=== PATIENT | male | born 1935 | race Caucasian/White ===

== ENCOUNTER → 2016-07-30 | Outpatient (REF) | payer OTHER ==
[~2016-07-30] MED LIST: ACET650T12 PO; AMLO10TA PO; ASCO25TA PO; BEN1.4DI TOP; BISA10SU27 PR; CALC25TA PO; CALC500T49 PO; DOCU10CA PO; DOXY100T PO; DRIS50002 PO; FISH5CAP PO; FISH600C PO; GLUC15002 PO; IBUP-1114 PO; IRON65TA PO; LEVO100T5 PO; LIDO1PAD EXT; MILKSUS PO; MIRA3350 PO; MULTCAP PO; MYSO50TA5 PO; NEUR100C PO; OXYC1TAB23 PO; PERCOCET PO; SAW500CA9 PO; SENN8.6C PO; ULTR50TA PO; VITA50003 PO; VITMTA PO; ZOCO80TA PO
[2016-07-30 20:09] LABS: ALBUMIN 4.1 GM/DL (3.2-5.2); ALBUMIN/GLOBULIN RATIO 1.41 (1.00-1.93); ALKALINE PHOSPHATASE 127 U/L (45-117); ALT/SGPT 22 U/L (12-78); ANION GAP 9 MEQ/L (8-16); AST/SGOT 17 U/L (15-37); BILIRUBIN,TOTAL 0.3 MG/DL (0.2-1.0); BLOOD UREA NITROGEN 17 MG/DL (7-18); CALCIUM LEVEL 8.5 MG/DL (8.8-10.2); CARBON DIOXIDE LEVEL 29 MEQ/L (21-32); CHLORIDE LEVEL 106 MEQ/L (98-107); CREATININE FOR GFR 1.11 MG/DL (0.70-1.30); FREE T4 0.86 NG/DL (0.76-1.46); GLOMERULAR FILTRATION RATE > 60.0 (>42); GLUCOSE, FASTING 93 MG/DL (83-110); POTASSIUM SERUM 4.5 MEQ/L (3.5-5.1); SODIUM LEVEL 144 MEQ/L (136-145)
== END ==
LOC: M SFHCADAM 13:54
PROVIDERS: ATTEND Family Medicine
DX: I10 Essential (primary) hypertension (principal); E03.9 Hypothyroidism, unspecified

== ENCOUNTER → 2017-03-01 | Outpatient (REF) | payer OTHER ==
[~2017-03-01] MED LIST changes: -ULTR50TA PO; +ULTR50TA8 PO; +VITA1CAP40 PO; -VITA50003 PO
[2017-03-01 20:23] LABS: ALBUMIN 4.3 GM/DL (3.2-5.2); ALKALINE PHOSPHATASE 128 U/L (45-117); ALT/SGPT 22 U/L (12-78); ANION GAP 8 MEQ/L (8-16); AST/SGOT 18 U/L (7-37); BILIRUBIN,TOTAL 0.5 MG/DL (0.2-1.0); BLOOD UREA NITROGEN 14 MG/DL (7-18); CALCIUM LEVEL 8.7 MG/DL (8.8-10.2); CARBON DIOXIDE LEVEL 29 MEQ/L (21-32); CHLORIDE LEVEL 105 MEQ/L (98-107); CREATININE FOR GFR 1.02 MG/DL (0.70-1.30); FREE T4 0.92 NG/DL (0.76-1.46); GLOMERULAR FILTRATION RATE > 60.0 (>42); GLUCOSE, FASTING 75 MG/DL (83-110); POTASSIUM SERUM 4.3 MEQ/L (3.5-5.1); SODIUM LEVEL 142 MEQ/L (136-145); TOTAL PROTEIN 7.6 GM/DL (6.4-8.2)
== END ==
LOC: M SFHCADAM 16:08
PROVIDERS: ATTEND Family Medicine
DX: R25.1 Tremor, unspecified (principal); I10 Essential (primary) hypertension

== ENCOUNTER → 2017-09-26 | Outpatient (REF) | payer OTHER ==
[2017-09-26 12:39] LABS: HEMOGLOBIN 14.5 g/dl (13.5-17.5); MEAN CORPUSCULAR HEMOGLOBIN 33.5 pg (27.0-33.0); MEAN CORPUSCULAR HGB CONC 34.5 g/dl (32.0-36.5); PLATELET COUNT, AUTOMATED 192 10^3/uL (150-450); RED BLOOD COUNT 4.33 10^6/uL (4.30-6.10); RED CELL DISTRIBUTION WIDTH 12.3 % (11.5-14.5); WHITE BLOOD COUNT 4.4 10^3/uL (4.0-10.0)
[2017-09-26 13:00] LABS: ALBUMIN 3.9 GM/DL (3.2-5.2); ALKALINE PHOSPHATASE 115 U/L (45-117); ALT/SGPT 21 U/L (12-78); ANION GAP 5 MEQ/L (8-16); AST/SGOT 18 U/L (7-37); BILIRUBIN,TOTAL 0.4 MG/DL (0.2-1.0); BLOOD UREA NITROGEN 17 MG/DL (7-18); CALCIUM LEVEL 8.7 MG/DL (8.8-10.2); CARBON DIOXIDE LEVEL 29 MEQ/L (21-32); CHLORIDE LEVEL 108 MEQ/L (98-107); CREATININE FOR GFR 1.06 MG/DL (0.70-1.30); FREE T4 0.93 NG/DL (0.76-1.46); GLOMERULAR FILTRATION RATE > 60.0 (>35); GLUCOSE, FASTING 78 MG/DL (70-100); POTASSIUM SERUM 4.4 MEQ/L (3.5-5.1); SODIUM LEVEL 142 MEQ/L (136-145); TOTAL PROTEIN 6.9 GM/DL (6.4-8.2)
[2017-09-26 13:28] LABS: VITAMIN B12 LEVEL 245 PG/ML
[2017-09-26 13:29] LABS: FOLATE 22.8 NG/ML
== END ==
LOC: M SFHCADAM 11:18
DX: R41.3 Other amnesia (principal); E03.8 Other specified hypothyroidism

== ENCOUNTER 2017-10-11 21:17 | Emergency (ER) | payer OTHER ==
[2017-10-11] MEDS: NS 1,000 ML IV (18:13)
[2017-10-11 18:32] LABS: BASO % 0.3 % (0.0-1.0); EOS % 0.1 % (0.0-3.0); HEMATOCRIT 41.7 % (42.0-52.0); HEMOGLOBIN 14.5 g/dl (13.5-17.5); IMMATURE GRANULOCYTE % 0.3 % (0-3.0); LYMPH # 0.7 10^3/uL (1.5-4.5); LYMPH % 6.9 % (24.0-44.0); MEAN CORPUSCULAR HEMOGLOBIN 33.6 pg (27.0-33.0); MEAN CORPUSCULAR HGB CONC 34.8 g/dl (32.0-36.5); MEAN CORPUSCULAR VOLUME 96.8 fl (80.0-96.0); MONO # 0.7 10^3/uL (0.0-0.8); MONO % 6.1 % (0.0-5.0); NEUTROPHILS # 9.2 10^3/uL (1.8-7.7); NEUTROPHILS % 86.3 % (36.0-66.0); PLATELET COUNT, AUTOMATED 196 10^3/uL (150-450); RED BLOOD COUNT 4.31 10^6/uL (4.30-6.10); RED CELL DISTRIBUTION WIDTH 12.4 % (11.5-14.5); WHITE BLOOD COUNT 10.6 10^3/uL (4.0-10.0)
[2017-10-11 18:44] LABS: PROTHROMBIN TIME 13.3 SECONDS (12.1-14.4)
[2017-10-11 18:46] LABS: AMMONIA 15 uMOL/L (<32)
[2017-10-11 18:53] LABS: ALBUMIN/GLOBULIN RATIO 1.29 (1.00-1.93); ALKALINE PHOSPHATASE 131 U/L (45-117); ALT/SGPT 37 U/L (12-78); ANION GAP 7 MEQ/L (8-16); AST/SGOT 25 U/L (7-37); BILIRUBIN,DIRECT 0.1 MG/DL (0.0-0.2); BILIRUBIN,TOTAL 0.5 MG/DL (0.2-1.0); BLOOD UREA NITROGEN 17 MG/DL (7-18); CALCIUM LEVEL 8.6 MG/DL (8.8-10.2); CARBON DIOXIDE LEVEL 28 MEQ/L (21-32); CHLORIDE LEVEL 108 MEQ/L (98-107); CPK CREATINE PHOSPHOKINASE 112 U/L (39-308); CREATININE FOR GFR 1.17 MG/DL (0.70-1.30); ETHYL ALCOHOL (ETHANOL) < 0.003 % (0.000-0.010); GLOMERULAR FILTRATION RATE > 60.0 (>35); GLUCOSE, FASTING 106 MG/DL (70-100); POTASSIUM SERUM 4.3 MEQ/L (3.5-5.1); SALICYLATE LEVEL < 1.7 MG/DL (5.0-30.0); SODIUM LEVEL 143 MEQ/L (136-145); TOTAL PROTEIN 7.1 GM/DL (6.4-8.2); TROPONIN I 0.02 NG/ML (< 0.10)
[2017-10-11 18:58] LABS: CK-MB VALUE MASS 1.4 NG/ML (<3.6); MB/CK RELATIVE INDEX 1.25 (< OR =4)
[2017-10-11 19:01] LABS: ACETAMINOPHEN LEVEL < 2.0 UG/ML (10.0-30.0)
[2017-10-11 19:52] LABS: KETONE, URINE AUTO RFX TRACE mg/dL (NEGATIVE); LEUKOCYTE ESTERASE UR AUTO RFX NEGATIVE (NEGATIVE); MUCUS, URINE RFX SMALL (NEGATIVE); NITRITE, URINE AUTO RFX NEGATIVE (NEGATIVE); RBC, URINE AUTO RFX 14 /HPF (0-3); SPECIFIC GRAVITY UR AUTO RFX 1.017 (1.002-1.035); SQUAM EPITHELIAL CELL UR AURFX 0 /HPF (0-6); WBC, URINE AUTO RFX 4 /HPF (0-3)
== END 2017-10-11 21:31 | disposition home or self-care (01) ==
LOC: M ED 21:17
DX: R55 Syncope and collapse (principal); R41.0 Disorientation, unspecified; I45.10 Unspecified right bundle-branch block; I10 Essential (primary) hypertension; E07.9 Disorder of thyroid, unspecified; Z82.49 Family history of ischemic heart disease and other diseases of the circulatory system; Z79.899 Other long term (current) drug therapy
CPT/HCPCS: 71101

== ENCOUNTER 2017-10-13 19:33 | Emergency (ER) | payer OTHER | END 2017-10-13 22:09 | disposition home or self-care (01) | LOC: M ED 19:33 | DX: T14.8XXA Other injury of unspecified body region, initial encounter (principal); W01.0XXA Fall on same level from slipping, tripping and stumbling without subsequent striking against object, initial encounter; Y92.096 Garden or yard of other non-institutional residence as the place of occurrence of the external cause; I10 Essential (primary) hypertension; F03.90 Unspecified dementia, unspecified severity, without behavioral disturbance, psychotic disturbance, mood disturbance, and anxiety; E03.9 Hypothyroidism, unspecified; Z79.899 Other long term (current) drug therapy | CPT/HCPCS: 71101 ==

== ENCOUNTER 2017-11-07 07:10 | Day surgery (SDC) | payer OTHER ==
[2017-11-07] MEDS: PROPARACAINE 0.5% OPHTH SOL 15ML OS (07:30)
[2017-11-07] MEDS: PHENYLEPHRINE 2.5% OPHTH SOL 2ML OS (07:30)
[2017-11-07] MEDS ORDERED: MIDAZOLAM INJ 2 MG/2 ML VIAL (J2250) As Ordered (07:32)
[2017-11-07] MEDS ORDERED: fentaNYL 100 MCG/2 ML INJECTION (J3010) As Ordered (07:32)
[2017-11-07] MEDS: TROPICAMIDE 1% OPHTH SOLN 2ML OS (07:35)
[2017-11-07] MEDS: OFLOXACIN 0.3 % (OCUFLOX) OPTH SOL 5ML OS (07:35)
[2017-11-07] MEDS: LIDOCAINE 0.75%/EPINEPHRINE 0.025% IN BSS 1ML SYR INTRACAMERAL (OR ONLY) As Ordered (09:41)
[2017-11-07] MEDS: BALANCED SALT IRRIGATION SOLUTION 500ML BAG (FOR OR EYE MACHINE) As Ordered (09:41)
[2017-11-07] MEDS: POVIDONE-IODINE 5% OPHTH PREP SOL 30ML As Ordered (09:41)
[2017-11-07] MEDS: DUOVISC (0.50ML VISCOAT/0.55ML PROVISC) OPHTH KIT As Ordered (09:41)
[2017-11-07] MEDS: CEFUROXIME 1MG/0.1ML INTRACAMERAL INJ As Ordered (09:41)
[2017-11-07] MEDS ORDERED: ONDANSETRON 4MG/2ML VIAL (J2405) IV (10:30)
[2017-11-07] MEDS ORDERED: ACETAMINOPHEN TAB 650MG DOSE (2X325MG) PO (10:30)
== END 2017-11-07 10:37 | disposition home or self-care (01) ==
LOC: M SDC 07:10
DX: H25.12 Age-related nuclear cataract, left eye (principal); E78.4 Other hyperlipidemia; I10 Essential (primary) hypertension; E03.9 Hypothyroidism, unspecified; D64.9 Anemia, unspecified; R55 Syncope and collapse; Z79.899 Other long term (current) drug therapy
CPT/HCPCS: 66984

== ENCOUNTER 2017-11-14 06:07 | Day surgery (SDC) | payer OTHER ==
[2017-11-14] MEDS: OFLOXACIN 0.3 % (OCUFLOX) OPTH SOL 5ML OD (07:00)
[2017-11-14] MEDS: TROPICAMIDE 1% OPHTH SOLN 2ML OD (07:00)
[2017-11-14] MEDS: PHENYLEPHRINE 2.5% OPHTH SOL 2ML OD (07:01)
[2017-11-14] MEDS: PROPARACAINE 0.5% OPHTH SOL 15ML OD (07:01)
[2017-11-14] MEDS: POVIDONE-IODINE 5% OPHTH PREP SOL 30ML As Ordered (07:58)
[2017-11-14] MEDS: LIDOCAINE 0.75%/EPINEPHRINE 0.025% IN BSS 1ML SYR INTRACAMERAL (OR ONLY) As Ordered (08:02)
[2017-11-14] MEDS ORDERED: MIDAZOLAM INJ 2 MG/2 ML VIAL (J2250) As Ordered (08:03)
[2017-11-14] MEDS: BALANCED SALT IRRIGATION SOLUTION 500ML BAG (FOR OR EYE MACHINE) As Ordered (08:04)
[2017-11-14] MEDS ORDERED: fentaNYL 100 MCG/2 ML INJECTION (J3010) As Ordered (08:04)
[2017-11-14] MEDS: DUOVISC (0.50ML VISCOAT/0.55ML PROVISC) OPHTH KIT As Ordered (08:05)
[2017-11-14] MEDS: CEFUROXIME 1MG/0.1ML INTRACAMERAL INJ As Ordered (08:05)
[2017-11-14] MEDS ORDERED: ONDANSETRON 4MG/2ML VIAL (J2405) As Ordered (08:11)
== END 2017-11-14 09:20 | disposition home or self-care (01) ==
LOC: M SDC 06:07
DX: H25.11 Age-related nuclear cataract, right eye (principal); G25.0 Essential tremor; I10 Essential (primary) hypertension; E03.9 Hypothyroidism, unspecified; M54.5 Low back pain; D64.9 Anemia, unspecified; M12.9 Arthropathy, unspecified; Z86.010 Personal history of colon polyps; Z87.81 Personal history of (healed) traumatic fracture
CPT/HCPCS: 66984

== ENCOUNTER → 2018-11-05 | Outpatient (REF) | payer MEDICARE ==
[~2018-11-05] MED LIST changes: -ASCO25TA PO; -DRIS50002 PO; +DRIS50003 PO; +MILK120011 PO; -MILKSUS PO; +PRIM125TAB PO; +PRIM250T8 PO; -VITA1CAP40 PO; +VITA1TAB23 PO; +VITA50005 PO
[2018-11-05 19:47] LABS: BASO # 0.1 10^3/uL (0.0-0.2); BASO % 0.8 % (0.0-1.0); EOS # 0.1 10^3/uL (0.0-0.50); EOS % 1.9 % (0.0-3.0); HEMATOCRIT 38.2 % (42.0-52.0); HEMOGLOBIN 12.6 g/dl (13.5-17.5); LYMPH # 3.6 10^3/uL (1.5-4.5); LYMPH % 57.4 % (24.0-44.0); MEAN CORPUSCULAR HEMOGLOBIN 32.8 pg (27.0-33.0); MEAN CORPUSCULAR VOLUME 99.5 fl (80.0-96.0); MONO # 0.5 10^3/uL (0.0-0.8); MONO % 7.7 % (0.0-5.0); PLATELET COUNT, AUTOMATED 162 10^3/uL (150-450); RED BLOOD COUNT 3.84 10^6/uL (4.30-6.10); WHITE BLOOD COUNT 6.2 10^3/uL (4.0-10.0)
[2018-11-05 19:56] LABS: ALBUMIN 3.8 GM/DL (3.2-5.2); BILIRUBIN,TOTAL 0.6 MG/DL (0.2-1.0); CALCIUM LEVEL 8.8 MG/DL (8.8-10.2); CREATININE FOR GFR 1.47 MG/DL (0.70-1.30); GLOMERULAR FILTRATION RATE 48.9 (>35); POTASSIUM SERUM 4.6 MEQ/L (3.5-5.1); THYROID STIMULATING HORMONE 2.16 uIU/ML (0.358-3.740); TOTAL PROTEIN 7.2 GM/DL (6.4-8.2)
== END ==
LOC: M SFHCADAM 14:39
PROVIDERS: ATTEND Family Medicine
DX: Z00.00 Encounter for general adult medical examination without abnormal findings (principal); I10 Essential (primary) hypertension; Z23 Encounter for immunization
CPT/HCPCS: 80053; 84443; 85025; 90471; 90715; G0463

== ENCOUNTER → 2019-04-29 | Outpatient (REF) | payer MEDICARE ==
[2019-04-29 19:27] LABS: BASO # 0.1 10^3/uL (0.0-0.2); BASO % 0.9 % (0.0-1.0); EOS # 0.1 10^3/uL (0.0-0.5); EOS % 1.4 % (0.0-3.0); HEMATOCRIT 38.5 % (42.0-52.0); HEMOGLOBIN 12.8 g/dl (13.5-17.5); LYMPH # 2.3 10^3/uL (1.5-5.0); MEAN CORPUSCULAR HEMOGLOBIN 33.1 pg (27.0-33.0); MEAN CORPUSCULAR HGB CONC 33.2 g/dl (32.0-36.5); MEAN CORPUSCULAR VOLUME 99.5 fl (80.0-96.0); MONO # 0.5 10^3/uL (0.0-0.8); MONO % 7.6 % (0.0-5.0); NEUTROPHILS # 3.5 10^3/uL (1.5-8.5); NEUTROPHILS % 53.9 % (36.0-66.0); PLATELET COUNT, AUTOMATED 187 10^3/uL (150-450); RED BLOOD COUNT 3.87 10^6/uL (4.30-6.10); WHITE BLOOD COUNT 6.4 10^3/uL (4.0-10.0)
[2019-04-29 19:43] LABS: ALBUMIN 3.7 GM/DL (3.2-5.2); BILIRUBIN,TOTAL 0.3 MG/DL (0.2-1.0); CALCIUM LEVEL 8.2 MG/DL (8.8-10.2); CREATININE FOR GFR 1.53 MG/DL (0.70-1.30); GLOMERULAR FILTRATION RATE 46.7 (>35); POTASSIUM SERUM 4.7 MEQ/L (3.5-5.1); THYROID STIMULATING HORMONE 2.85 uIU/ML (0.358-3.740); TOTAL PROTEIN 6.9 GM/DL (6.4-8.2)
== END ==
LOC: M SFHCADAM 16:33
PROVIDERS: ATTEND Family Medicine
DX: I10 Essential (primary) hypertension (principal); G25.0 Essential tremor; E03.9 Hypothyroidism, unspecified
CPT/HCPCS: 80053; 84443; 85025; G0463

== ENCOUNTER → 2019-11-16 | Outpatient (REF) | payer MEDICARE ==
[~2019-11-16] MED LIST changes: +ASCO250T20 PO; -VITA1TAB23 PO
[2019-12-13 05:12] LABS: BASO % 0.6 % (0.0-1.0); EOS # 0.1 10^3/uL (0.0-0.5); EOS % 1.6 % (0.0-3.0); HEMATOCRIT 39.9 % (42.0-52.0); HEMOGLOBIN 13.1 g/dl (13.5-17.5); LYMPH # 1.6 10^3/uL (1.5-5.0); LYMPH % 32.2 % (24.0-44.0); MEAN CORPUSCULAR HEMOGLOBIN 32.8 pg (27.0-33.0); MEAN CORPUSCULAR HGB CONC 32.8 g/dl (32.0-36.5); MEAN CORPUSCULAR VOLUME 99.8 fl (80.0-96.0); MONO # 0.4 10^3/uL (0.0-0.8); MONO % 7.7 % (0.0-5.0); NEUTROPHILS # 2.9 10^3/uL (1.5-8.5); NEUTROPHILS % 57.7 % (36.0-66.0); PLATELET COUNT, AUTOMATED 174 10^3/uL (150-450); WHITE BLOOD COUNT 4.9 10^3/uL (4.0-10.0)
[2019-12-26 21:01] LABS: ALBUMIN 3.5 GM/DL (3.2-5.2); BILIRUBIN,TOTAL 0.4 MG/DL (0.2-1.0); CALCIUM LEVEL 8.3 MG/DL (8.8-10.2); CREATININE FOR GFR 1.45 MG/DL (0.70-1.30); FREE T4 1.11 NG/DL (0.76-1.46); GLOMERULAR FILTRATION RATE 49.6 (>35); THYROID STIMULATING HORMONE 2.02 uIU/ML (0.358-3.740); TOTAL PROTEIN 6.8 GM/DL (6.4-8.2)
== END ==
LOC: M SFHCADAM 09:23
PROVIDERS: ATTEND Family Medicine
DX: E03.9 Hypothyroidism, unspecified (principal); R00.1 Bradycardia, unspecified; R25.1 Tremor, unspecified

== ENCOUNTER 2022-07-30 15:39 | Emergency (ER) | payer MEDICARE, OTHER ==
[~2022-07-30] VITALS: Ht 172.7 cm; Wt 81.8 kg
[2022-07-30] MEDS ORDERED: CEPHALEXIN 500 MG CAP PO ONE (19:00)
[2022-07-30] MEDS ORDERED: CEPH500C PO (19:02)
[2022-07-30] MEDS ORDERED: **hydrALAZINE HCL** 25 MG TAB PO ONE (19:55)
[2022-07-30 20:03] VITALS: BP 204/94
[2022-07-30 20:35] VITALS: BP 168/74
== END 2022-07-30 20:44 | disposition home or self-care (01) ==
LOC: M ED 15:39
DX: S50.02XA Contusion of left elbow, initial encounter (principal); S80.02XA Contusion of left knee, initial encounter; W10.1XXA Fall (on)(from) sidewalk curb, initial encounter; Y92.511 Restaurant or cafe as the place of occurrence of the external cause; E03.9 Hypothyroidism, unspecified; I10 Essential (primary) hypertension; Z79.899 Other long term (current) drug therapy

== ENCOUNTER → 2022-08-10 | Outpatient (REF) | payer MEDICARE, OTHER ==
[~2022-08-10] MED LIST changes: +CEPH500C PO
[2022-08-10 13:40] LABS: BASO # 0.1 10^3/uL (0.0-0.2); EOS # 0.1 10^3/uL (0.0-0.5); EOS % 1.6 % (0.0-3.0); HEMATOCRIT 38.3 % (42.0-52.0); HEMOGLOBIN 12.4 g/dl (13.5-17.5); LYMPH # 1.2 10^3/uL (1.5-5.0); LYMPH % 19.4 % (24.0-44.0); MEAN CORPUSCULAR HEMOGLOBIN 33.2 pg (27.0-33.0); MEAN CORPUSCULAR HGB CONC 32.4 g/dl (32.0-36.5); MEAN CORPUSCULAR VOLUME 102.4 fl (80.0-96.0); MONO # 0.6 10^3/uL (0.0-0.8); MONO % 9.9 % (2.0-8.0); NEUTROPHILS # 4.1 10^3/uL (1.5-8.5); NEUTROPHILS % 67.8 % (36.0-66.0); PLATELET COUNT, AUTOMATED 232 10^3/uL (150-450); RED BLOOD COUNT 3.74 10^6/uL (4.30-6.10); WHITE BLOOD COUNT 6.1 10^3/uL (4.0-10.0)
[2022-08-10 13:41] LABS: ALBUMIN 3.3 G/DL (3.2-5.2); BILIRUBIN,TOTAL 0.3 MG/DL (0.3-1.2); CREATININE FOR GFR 1.31 MG/DL (0.70-1.30); GLOMERULAR FILTRATION RATE 55.5 (>35); POTASSIUM SERUM 4.9 MMOL/L (3.5-5.1); TOTAL PROTEIN 6.4 G/DL (5.7-8.2)
[2022-08-10 13:43] LABS: THYROID STIMULATING HORMONE 1.941 uIU/ML (0.55-4.78)
== END ==
LOC: M SFHCADAM 12:46
PROVIDERS: ATTEND Family Medicine
DX: Z00.00 Encounter for general adult medical examination without abnormal findings (principal); E03.9 Hypothyroidism, unspecified

== ENCOUNTER 2022-09-14 14:32 | Emergency (ER) | payer OTHER, MEDICARE ==
[~2022-09-14] VITALS: Ht 172.7 cm; Wt 65.9 kg
[2022-09-14 18:04] VITALS: BP 152/69
== END 2022-09-14 18:06 | disposition home or self-care (01) ==
LOC: M ED 14:32
DX: S16.1XXA Strain of muscle, fascia and tendon at neck level, initial encounter (principal); V89.2XXA Person injured in unspecified motor-vehicle accident, traffic, initial encounter; I10 Essential (primary) hypertension; N18.9 Chronic kidney disease, unspecified; G25.0 Essential tremor; Z79.899 Other long term (current) drug therapy

== ENCOUNTER → 2022-09-21 | Outpatient (REF) | payer MEDICARE, OTHER | LOC: M SFHCDERM 18:12 | PROVIDERS: ATTEND Nurse Practitioner Family | DX: C44.319 Basal cell carcinoma of skin of other parts of face (principal); L85.9 Epidermal thickening, unspecified ==

== ENCOUNTER 2022-11-12 11:47 | Emergency (ER) | payer MEDICARE ==
[~2022-11-12] VITALS: Ht 172.7 cm; Wt 74.3 kg
[2022-11-12 14:43] LABS: BASO % 0.6 % (0.0-1.0); EOS % 0.6 % (0.0-3.0); HEMATOCRIT 37.6 % (42.0-52.0); HEMOGLOBIN 12.5 g/dl (13.5-17.5); LYMPH # 1.4 10^3/uL (1.5-5.0); LYMPH % 22.1 % (24.0-44.0); MEAN CORPUSCULAR HEMOGLOBIN 32.6 pg (27.0-33.0); MEAN CORPUSCULAR HGB CONC 33.2 g/dl (32.0-36.5); MEAN CORPUSCULAR VOLUME 97.9 fl (80.0-96.0); MONO # 0.7 10^3/uL (0.0-0.8); MONO % 10.8 % (2.0-8.0); NEUTROPHILS # 4.1 10^3/uL (1.5-8.5); NEUTROPHILS % 65.7 % (36.0-66.0); PLATELET COUNT, AUTOMATED 180 10^3/uL (150-450); RED BLOOD COUNT 3.84 10^6/uL (4.30-6.10); WHITE BLOOD COUNT 6.2 10^3/uL (4.0-10.0)
[2022-11-12 15:15] LABS: C REACTIVE PROTEIN QUANTITATIV 6.2 MG/DL (<1.0)
[2022-11-12 15:20] LABS: ERYTHROCYTE SEDIMENTATION RATE 29 mm/hr (0-20)
[2022-11-12] MEDS ORDERED: LIDOCAINE 2% 5ML JELLY UROJET TOP ONE (16:15)
[2022-11-12 16:53] LABS: URIC ACID 7.2 MG/DL (3.7-9.2)
[2022-11-12] MEDS ORDERED: NS 500 ML IV ONE (17:45)
[2022-11-12 20:02] LABS: ALBUMIN 3.5 G/DL (3.2-5.2); BILIRUBIN,DIRECT 0.2 MG/DL (<0.4); BILIRUBIN,TOTAL 0.5 MG/DL (0.3-1.2); TOTAL PROTEIN 6.7 G/DL (5.7-8.2)
[2022-11-12 20:56] VITALS: BP 132/77; TEMP 98; O2SAT 99
== END 2022-11-12 21:18 | disposition home or self-care (01) ==
LOC: M ED 11:47
DX: M25.531 Pain in right wrist (principal); I10 Essential (primary) hypertension; E03.9 Hypothyroidism, unspecified; G91.9 Hydrocephalus, unspecified; M19.032 Primary osteoarthritis, left wrist; Z79.899 Other long term (current) drug therapy

== ENCOUNTER 2022-11-26 10:20 | Inpatient (IN) | payer MEDICARE ==
[~2022-11-26] VITALS: Ht 172.7 cm; Wt 75.9 kg
[2022-11-26] MEDS ORDERED: LIDOCAINE 2% 5ML JELLY UROJET TOP ONE (10:30)
[2022-11-26] MEDS ORDERED: NS 500 ML IV ONE (10:50)
[2022-11-26] MEDS ORDERED: BOOSTRIX VACCINE (TETANUS/DIPHTH/ACEL. PERTUSSIS) 0.5ML SYR IM.IMMUN ONE (10:55)
[2022-11-26 11:18] LABS: BASO # 0.1 10^3/uL (0.0-0.2); BASO % 0.8 % (0.0-1.0); EOS % 0.5 % (0.0-3.0); HEMATOCRIT 35.4 % (42.0-52.0); HEMOGLOBIN 11.4 g/dl (13.5-17.5); LYMPH % 15.5 % (24.0-44.0); MEAN CORPUSCULAR HEMOGLOBIN 31.7 pg (27.0-33.0); MEAN CORPUSCULAR HGB CONC 32.2 g/dl (32.0-36.5); MEAN CORPUSCULAR VOLUME 98.3 fl (80.0-96.0); MONO # 0.7 10^3/uL (0.0-0.8); MONO % 10.5 % (2.0-8.0); NEUTROPHILS # 4.7 10^3/uL (1.5-8.5); NEUTROPHILS % 72.2 % (36.0-66.0); PLATELET COUNT, AUTOMATED 148 10^3/uL (150-450); WHITE BLOOD COUNT 6.5 10^3/uL (4.0-10.0)
[2022-11-26] MEDS ORDERED: MED REC IN PROGRESS XX SCH (11:40)
[2022-11-26 11:45] LABS: CK-MB VALUE MASS < 1.0 NG/ML (<3.6)
[2022-11-26 11:45] LABS: OSMOLALITY SERUM 295 MOSM/KG (280-301)
[2022-11-26 11:47] LABS: ALBUMIN 3.2 G/DL (3.2-5.2); ALKALINE PHOSPHATASE 115 U/L (46-116); ALT/SGPT 14 U/L (7.0-40); AST/SGOT < 8 U/L (<34); BILIRUBIN,DIRECT 0.3 MG/DL (<0.4); BILIRUBIN,TOTAL 0.7 MG/DL (0.3-1.2); BLOOD UREA NITROGEN 17 MG/DL (9-23); CALCIUM LEVEL 8.6 MG/DL (8.3-10.6); CARBON DIOXIDE LEVEL 29 MMOL/L (20-31); CHLORIDE LEVEL 107 MMOL/L (98-107); CREATININE FOR GFR 1.29 MG/DL (0.70-1.30); GLOMERULAR FILTRATION RATE 56.4 (>35); GLUCOSE, FASTING 96 MG/DL (74-106); POTASSIUM SERUM 4.2 MMOL/L (3.5-5.1); SODIUM LEVEL 143 MMOL/L (136-145); TOTAL PROTEIN 6.4 G/DL (5.7-8.2)
[2022-11-26 11:47] LABS: ACETAMINOPHEN LEVEL < 2.0 UG/ML (10.0-20.0); ETHYL ALCOHOL (ETHANOL) < 0.003 % (0.000-0.010)
[2022-11-26 11:48] LABS: CPK CREATINE PHOSPHOKINASE 43 U/L (46-171); MB/CK RELATIVE INDEX 2.32 (< OR =4); SALICYLATE LEVEL < 3.0 MG/DL (<30)
[2022-11-26 11:48] LABS: THYROID STIMULATING HORMONE 0.463 uIU/ML (0.55-4.78)
[2022-11-26 11:52] LABS: RSV AMPLIFICATION NEGATIVE (NEGATIVE)
[2022-11-26] MEDS ORDERED: CEFD300C41 PO (11:52)
[2022-11-26] MEDS ORDERED: HOME MED LIST COMPLETE! XX SCH (11:55)
[2022-11-26 13:15] LABS: CK-MB VALUE MASS < 1.0 NG/ML (<3.6); CPK CREATINE PHOSPHOKINASE 40 U/L (46-171)
[2022-11-26] MEDS ORDERED: PROP60CA (15:25)
[2022-11-26 16:41] LABS: FREE THYROXINE INDEX 4.1 % (1.4-3.8); T UPTAKE 49.1 % (22.5-37.0); THYROXINE (T4) 8.4 UG/DL (4.5-10.9)
[2022-11-26] MEDS: amLODIPine 5 MG TAB PO SCH (18:53)
[2022-11-26] MEDS: PRIMIDONE 250 MG TAB PO SCH (22:53)
[2022-11-27] MEDS: ACETAMINOPHEN TAB 650MG DOSE (2X325MG) PO PRN ×2 (00:35→17:56)
[2022-11-27 06:00] LABS: HEMATOCRIT 30.1 % (42.0-52.0); HEMOGLOBIN 10.1 g/dl (13.5-17.5); MEAN CORPUSCULAR HEMOGLOBIN 32.4 pg (27.0-33.0); MEAN CORPUSCULAR HGB CONC 33.6 g/dl (32.0-36.5); MEAN CORPUSCULAR VOLUME 96.5 fl (80.0-96.0); PLATELET COUNT, AUTOMATED 150 10^3/uL (150-450); RED BLOOD COUNT 3.12 10^6/uL (4.30-6.10); WHITE BLOOD COUNT 7.3 10^3/uL (4.0-10.0)
[2022-11-27] MEDS ORDERED: LEVOTHYROXINE 100MCG TABLET (0.1MG) PO SCH (06:00)
[2022-11-27 06:28] LABS: CREATININE FOR GFR 1.26 MG/DL (0.70-1.30); GLOMERULAR FILTRATION RATE 57.9 (>35); POTASSIUM SERUM 3.9 MMOL/L (3.5-5.1)
[2022-11-27 07:53] LABS: FREE THYROXINE INDEX 3.2 % (1.4-3.8); T UPTAKE 45.3 % (22.5-37.0); THYROID STIMULATING HORMONE 0.362 uIU/ML (0.55-4.78)
[2022-11-27] MEDS: amLODIPine 5 MG TAB PO SCH ×2 (09:19→22:00)
[2022-11-27] MEDS: ENOXAPARIN 30MG/0.3ML SYRINGE (J1650 PER 10MG) SC SCH (09:20)
[2022-11-27 17:36] VITALS: BP 156/84; TEMP 102.5; O2SAT 96
[2022-11-27 17:43] VITALS: TEMP 104.8
[2022-11-27] MEDS ORDERED: VANCOMYCIN HCL 750 MG, VIAL MATE ADAPTER 1 EACH in D5W 250 ML IV SCH (17:55)
[2022-11-27] MEDS: cefTRIAXone SOD 2 GM in D5W MINI-BAG PLUS 50 ML IV SCH (18:40)
[2022-11-27] MEDS: ACETAMINOPHEN 650MG SUPP PR PRN (18:43)
[2022-11-27 19:01] VITALS: TEMP 103.7
[2022-11-27] MEDS ORDERED: VANCOMYCIN HCL 750 MG, VIAL MATE ADAPTER 1 EACH in D5W 250 ML IV ONE ×2 (20:00→21:00)
[2022-11-27 20:16] VITALS: BP 123/62; TEMP 100.7; O2SAT 96
[2022-11-27 22:00] VITALS: TEMP 99.8
[2022-11-27] MEDS: PRIMIDONE 250 MG TAB PO SCH (22:11)
[2022-11-28] VITALS (7 sets, daily range): BP systolic 100–117; BP diastolic 51–67; TEMP 98.1–100.7; O2SAT 90–98
[2022-11-28 05:55] LABS: HEMATOCRIT 32.1 % (42.0-52.0); HEMOGLOBIN 10.6 g/dl (13.5-17.5); MEAN CORPUSCULAR HEMOGLOBIN 32.1 pg (27.0-33.0); MEAN CORPUSCULAR VOLUME 97.3 fl (80.0-96.0); PLATELET COUNT, AUTOMATED 108 10^3/uL (150-450); WHITE BLOOD COUNT 13.6 10^3/uL (4.0-10.0)
[2022-11-28] MEDS: LEVOTHYROXINE 88MCG TABLET (0.088 MG) PO SCH (06:00)
[2022-11-28 06:20] LABS: CALCIUM LEVEL 8.1 MG/DL (8.3-10.6); CREATININE FOR GFR 1.52 MG/DL (0.70-1.30); GLOMERULAR FILTRATION RATE 46.6 (>35); POTASSIUM SERUM 3.4 MMOL/L (3.5-5.1)
[2022-11-28 07:34] LABS: VANCOMYCIN RANDOM 15.1 UG/ML
[2022-11-28] MEDS ORDERED: VANCOMYCIN HCL 1,000 MG, VIAL MATE ADAPTER 1 EACH in D5W 250 ML IV SCH ×2 (08:00→10:00)
[2022-11-28] MEDS: ENOXAPARIN 30MG/0.3ML SYRINGE (J1650 PER 10MG) SC SCH (08:21)
[2022-11-28] MEDS: amLODIPine 5 MG TAB PO SCH ×2 (08:21→20:59)
[2022-11-28] MEDS ORDERED: POTASSIUM CHLORIDE 10MEQ SR TABLET PO ONE (09:00)
[2022-11-28] MEDS ORDERED: NS 1,000 ML IV SCH (09:00)
[2022-11-28] MEDS: cefTRIAXone SOD 2 GM in D5W MINI-BAG PLUS 50 ML IV SCH (17:56)
[2022-11-28] MEDS: PRIMIDONE 250 MG TAB PO SCH (21:08)
[2022-11-28] MEDS: ACETAMINOPHEN 650MG SUPP PR PRN (21:09)
[2022-11-29] VITALS (8 sets, daily range): BP systolic 100–143; BP diastolic 54–63; TEMP 97.5–98.6; O2SAT 92–99
[2022-11-29 05:39] LABS: HEMATOCRIT 27.2 % (42.0-52.0); MEAN CORPUSCULAR HEMOGLOBIN 32.5 pg (27.0-33.0); MEAN CORPUSCULAR HGB CONC 33.1 g/dl (32.0-36.5); MEAN CORPUSCULAR VOLUME 98.2 fl (80.0-96.0); PLATELET COUNT, AUTOMATED 100 10^3/uL (150-450); RED BLOOD COUNT 2.77 10^6/uL (4.30-6.10); WHITE BLOOD COUNT 6.9 10^3/uL (4.0-10.0)
[2022-11-29 05:52] LABS: CALCIUM LEVEL 7.2 MG/DL (8.3-10.6); CREATININE FOR GFR 1.88 MG/DL (0.70-1.30); GLOMERULAR FILTRATION RATE 36.5 (>35)
[2022-11-29] MEDS: LEVOTHYROXINE 88MCG TABLET (0.088 MG) PO SCH (06:46)
[2022-11-29] MEDS: amLODIPine 5 MG TAB PO SCH ×2 (09:17→20:14)
[2022-11-29] MEDS ORDERED: NS 1,000 ML IV SCH (09:45)
[2022-11-29] MEDS: ENOXAPARIN 30MG/0.3ML SYRINGE (J1650 PER 10MG) SC SCH (11:11)
[2022-11-29] MEDS ORDERED: IPRATROPIUM 0.5MG/ALBUTEROL 2.5MG INH SOL UD 3ML (DUONEB) NEB PRN (17:50)
[2022-11-29] MEDS: cefTRIAXone SOD 2 GM in D5W MINI-BAG PLUS 50 ML IV SCH (18:05)
[2022-11-29] MEDS: PRIMIDONE 250 MG TAB PO SCH (20:14)
[2022-11-30 04:00] VITALS: BP 104/51; TEMP 97.7; O2SAT 95
[2022-11-30] MEDS: LEVOTHYROXINE 88MCG TABLET (0.088 MG) PO SCH (05:07)
[2022-11-30 05:31] LABS: HEMATOCRIT 27.9 % (42.0-52.0); HEMOGLOBIN 9.1 g/dl (13.5-17.5); MEAN CORPUSCULAR HEMOGLOBIN 31.8 pg (27.0-33.0); MEAN CORPUSCULAR HGB CONC 32.6 g/dl (32.0-36.5); MEAN CORPUSCULAR VOLUME 97.6 fl (80.0-96.0); PLATELET COUNT, AUTOMATED 118 10^3/uL (150-450); RED BLOOD COUNT 2.86 10^6/uL (4.30-6.10); WHITE BLOOD COUNT 6.2 10^3/uL (4.0-10.0)
[2022-11-30 05:51] LABS: CALCIUM LEVEL 7.5 MG/DL (8.3-10.6); CREATININE FOR GFR 1.61 MG/DL (0.70-1.30); GLOMERULAR FILTRATION RATE 43.6 (>35); POTASSIUM SERUM 4.2 MMOL/L (3.5-5.1)
[2022-11-30] MEDS ORDERED: CEFEPIME HCL 2 GM in D5W MINI-BAG PLUS 50 ML IV SCH (06:00)
[2022-11-30 07:49] VITALS: BP 121/63; TEMP 98; O2SAT 95
[2022-11-30] MEDS: ENOXAPARIN 30MG/0.3ML SYRINGE (J1650 PER 10MG) SC SCH (09:18)
[2022-11-30] MEDS: amLODIPine 5 MG TAB PO SCH ×2 (09:26→20:58)
[2022-11-30 12:00] VITALS: BP 125/58; TEMP 97.4; O2SAT 97
[2022-11-30 15:12] VITALS: BP 145/67; TEMP 97.3; O2SAT 97
[2022-11-30 20:28] VITALS: BP 167/76; TEMP 97.5; O2SAT 94
[2022-11-30] MEDS: BACTRIM 160MG/800MG DS TAB PO SCH (20:58)
[2022-11-30] MEDS: PRIMIDONE 250 MG TAB PO SCH (20:58)
[2022-12-01 04:32] VITALS: BP 125/61; TEMP 97.5; O2SAT 94
[2022-12-01] MEDS: LEVOTHYROXINE 88MCG TABLET (0.088 MG) PO SCH (05:21)
[2022-12-01 05:47] LABS: HEMATOCRIT 30.1 % (42.0-52.0); HEMOGLOBIN 9.7 g/dl (13.5-17.5); MEAN CORPUSCULAR HEMOGLOBIN 31.3 pg (27.0-33.0); MEAN CORPUSCULAR HGB CONC 32.2 g/dl (32.0-36.5); MEAN CORPUSCULAR VOLUME 97.1 fl (80.0-96.0); PLATELET COUNT, AUTOMATED 128 10^3/uL (150-450); WHITE BLOOD COUNT 6.4 10^3/uL (4.0-10.0)
[2022-12-01 06:12] LABS: CALCIUM LEVEL 8.1 MG/DL (8.3-10.6); CREATININE FOR GFR 1.52 MG/DL (0.70-1.30); GLOMERULAR FILTRATION RATE 46.6 (>35); POTASSIUM SERUM 4.3 MMOL/L (3.5-5.1)
[2022-12-01] MEDS: amLODIPine 5 MG TAB PO SCH ×2 (09:00→20:59)
[2022-12-01 09:16] VITALS: BP 118/60
[2022-12-01] MEDS: ENOXAPARIN 30MG/0.3ML SYRINGE (J1650 PER 10MG) SC SCH (09:18)
[2022-12-01] MEDS: BACTRIM 160MG/800MG DS TAB PO SCH ×2 (09:18→20:59)
[2022-12-01 15:54] VITALS: BP 120/62; TEMP 98; O2SAT 96
[2022-12-01] MEDS: PRIMIDONE 250 MG TAB PO SCH (20:59)
[2022-12-02] MEDS: LEVOTHYROXINE 88MCG TABLET (0.088 MG) PO SCH (05:15)
[2022-12-02 05:55] LABS: HEMOGLOBIN 8.9 g/dl (13.5-17.5); MEAN CORPUSCULAR HEMOGLOBIN 31.8 pg (27.0-33.0); MEAN CORPUSCULAR VOLUME 96.4 fl (80.0-96.0); PLATELET COUNT, AUTOMATED 138 10^3/uL (150-450); WHITE BLOOD COUNT 5.3 10^3/uL (4.0-10.0)
[2022-12-02 06:23] LABS: CALCIUM LEVEL 7.7 MG/DL (8.3-10.6); CREATININE FOR GFR 1.68 MG/DL (0.70-1.30); GLOMERULAR FILTRATION RATE 41.5 (>35); POTASSIUM SERUM 4.1 MMOL/L (3.5-5.1)
[2022-12-02 07:40] VITALS: BP 138/63; TEMP 97.9; O2SAT 95
[2022-12-02] MEDS: ENOXAPARIN 30MG/0.3ML SYRINGE (J1650 PER 10MG) SC SCH (08:35)
[2022-12-02] MEDS: BACTRIM 160MG/800MG DS TAB PO SCH ×2 (08:35→20:46)
[2022-12-02] MEDS: amLODIPine 5 MG TAB PO SCH ×2 (08:36→20:45)
[2022-12-02 19:32] VITALS: BP 131/61; TEMP 97.7; O2SAT 98
[2022-12-02] MEDS: PRIMIDONE 250 MG TAB PO SCH (20:45)
[2022-12-03 05:18] LABS: HEMOGLOBIN 9.5 g/dl (13.5-17.5); MEAN CORPUSCULAR HEMOGLOBIN 31.5 pg (27.0-33.0); MEAN CORPUSCULAR HGB CONC 32.8 g/dl (32.0-36.5); PLATELET COUNT, AUTOMATED 160 10^3/uL (150-450); RED BLOOD COUNT 3.02 10^6/uL (4.30-6.10); WHITE BLOOD COUNT 6.8 10^3/uL (4.0-10.0)
[2022-12-03] MEDS: LEVOTHYROXINE 88MCG TABLET (0.088 MG) PO SCH (05:19)
[2022-12-03 05:43] LABS: CALCIUM LEVEL 7.8 MG/DL (8.3-10.6); CREATININE FOR GFR 1.69 MG/DL (0.70-1.30); GLOMERULAR FILTRATION RATE 41.3 (>35); POTASSIUM SERUM 4.9 MMOL/L (3.5-5.1)
[2022-12-03 07:37] VITALS: BP 121/58; TEMP 97.8; O2SAT 96
[2022-12-03] MEDS: amLODIPine 5 MG TAB PO SCH ×2 (09:38→21:20)
[2022-12-03] MEDS: ENOXAPARIN 30MG/0.3ML SYRINGE (J1650 PER 10MG) SC SCH (09:38)
[2022-12-03] MEDS: LevoFLOXacin 750 MG TABLET PO SCH (12:52)
[2022-12-03 19:34] VITALS: BP 144/61; TEMP 98.2; O2SAT 97
[2022-12-03] MEDS: PRIMIDONE 250 MG TAB PO SCH (21:19)
[2022-12-04] MEDS: LEVOTHYROXINE 88MCG TABLET (0.088 MG) PO SCH (05:59)
[2022-12-04 08:49] LABS: CLOSTRIDIUM DIFFICILE PCR POSITIVE (NEGATIVE)
[2022-12-04] MEDS: ENOXAPARIN 30MG/0.3ML SYRINGE (J1650 PER 10MG) SC SCH (09:33)
[2022-12-04] MEDS: amLODIPine 5 MG TAB PO SCH ×2 (09:33→22:30)
[2022-12-04] MEDS: FIDAXOMICIN 200 MG TAB (DIFICID) PO SCH ×2 (16:28→22:29)
[2022-12-04 19:00] VITALS: BP 126/60; TEMP 98.6; O2SAT 96
[2022-12-04] MEDS ORDERED: FIDAXOMICIN 200 MG TAB (DIFICID) PO SCH (21:00)
[2022-12-04 22:00] VITALS: BP 133/65
[2022-12-04] MEDS: PRIMIDONE 250 MG TAB PO SCH (22:30)
[2022-12-05 04:40] VITALS: BP 130/59; TEMP 97; O2SAT 95
[2022-12-05] MEDS: LevoFLOXacin 750 MG TABLET PO SCH (05:11)
[2022-12-05] MEDS: LEVOTHYROXINE 88MCG TABLET (0.088 MG) PO SCH (05:11)
[2022-12-05] MEDS: amLODIPine 5 MG TAB PO SCH ×2 (09:13→20:22)
[2022-12-05] MEDS: FIDAXOMICIN 200 MG TAB (DIFICID) PO SCH ×2 (09:13→20:19)
[2022-12-05] MEDS: ENOXAPARIN 30MG/0.3ML SYRINGE (J1650 PER 10MG) SC SCH (09:13)
[2022-12-05] MEDS: PRIMIDONE 250 MG TAB PO SCH (20:22)
[2022-12-05] MEDS: ACETAMINOPHEN TAB 650MG DOSE (2X325MG) PO PRN (23:30)
[2022-12-06] MEDS: LEVOTHYROXINE 88MCG TABLET (0.088 MG) PO SCH (05:36)
[2022-12-06] MEDS: ENOXAPARIN 30MG/0.3ML SYRINGE (J1650 PER 10MG) SC SCH (08:46)
[2022-12-06] MEDS: amLODIPine 5 MG TAB PO SCH ×2 (08:49→20:22)
[2022-12-06] MEDS: FIDAXOMICIN 200 MG TAB (DIFICID) PO SCH ×2 (08:49→20:22)
[2022-12-06] MEDS: PRIMIDONE 250 MG TAB PO SCH (20:22)
[2022-12-06] MEDS: ACETAMINOPHEN TAB 650MG DOSE (2X325MG) PO PRN (20:23)
[2022-12-07 05:50] VITALS: BP 126/62; TEMP 97.9; O2SAT 97
[2022-12-07] MEDS: LEVOTHYROXINE 88MCG TABLET (0.088 MG) PO SCH (05:59)
[2022-12-07] MEDS: LevoFLOXacin 750 MG TABLET PO SCH (05:59)
[2022-12-07] MEDS: amLODIPine 5 MG TAB PO SCH ×2 (09:00→20:58)
[2022-12-07] MEDS: ENOXAPARIN 30MG/0.3ML SYRINGE (J1650 PER 10MG) SC SCH (09:19)
[2022-12-07] MEDS: FIDAXOMICIN 200 MG TAB (DIFICID) PO SCH ×2 (09:19→20:58)
[2022-12-07 09:22] VITALS: BP 107/50
[2022-12-07] MEDS: PRIMIDONE 250 MG TAB PO SCH (20:58)
[2022-12-08] MEDS: LEVOTHYROXINE 88MCG TABLET (0.088 MG) PO SCH (05:52)
[2022-12-08 06:00] VITALS: BP 122/64; TEMP 97.9; O2SAT 95
[2022-12-08] MEDS: amLODIPine 5 MG TAB PO SCH ×2 (10:20→20:50)
[2022-12-08] MEDS: FIDAXOMICIN 200 MG TAB (DIFICID) PO SCH ×2 (10:23→20:49)
[2022-12-08] MEDS: ENOXAPARIN 30MG/0.3ML SYRINGE (J1650 PER 10MG) SC SCH (10:24)
[2022-12-08] MEDS: PRIMIDONE 250 MG TAB PO SCH (20:50)
[2022-12-09] MEDS: LEVOTHYROXINE 88MCG TABLET (0.088 MG) PO SCH (05:19)
[2022-12-09] MEDS: LevoFLOXacin 750 MG TABLET PO SCH (05:19)
[2022-12-09 06:00] VITALS: BP 100/67; TEMP 97.7; O2SAT 93
[2022-12-09] MEDS: ENOXAPARIN 30MG/0.3ML SYRINGE (J1650 PER 10MG) SC SCH (09:49)
[2022-12-09] MEDS: amLODIPine 5 MG TAB PO SCH ×3 (09:51→21:23)
[2022-12-09] MEDS: FIDAXOMICIN 200 MG TAB (DIFICID) PO SCH ×3 (09:51→22:03)
[2022-12-09 20:35] LABS: BASO # 0.1 10^3/uL (0.0-0.2); BASO % 1.2 % (0.0-1.0); EOS # 0.1 10^3/uL (0.0-0.5); EOS % 2.3 % (0.0-3.0); HEMATOCRIT 29.3 % (42.0-52.0); HEMOGLOBIN 9.5 g/dl (13.5-17.5); LYMPH # 1.5 10^3/uL (1.5-5.0); LYMPH % 31.6 % (24.0-44.0); MEAN CORPUSCULAR HEMOGLOBIN 31.8 pg (27.0-33.0); MEAN CORPUSCULAR HGB CONC 32.4 g/dl (32.0-36.5); MONO # 0.4 10^3/uL (0.0-0.8); MONO % 7.6 % (2.0-8.0); NEUTROPHILS # 2.7 10^3/uL (1.5-8.5); NEUTROPHILS % 56.3 % (36.0-66.0); PLATELET COUNT, AUTOMATED 288 10^3/uL (150-450); RED BLOOD COUNT 2.99 10^6/uL (4.30-6.10); WHITE BLOOD COUNT 4.9 10^3/uL (4.0-10.0)
[2022-12-09 20:42] LABS: ERYTHROCYTE SEDIMENTATION RATE 21 mm/hr (0-20)
[2022-12-09 21:07] LABS: CALCIUM LEVEL 7.5 MG/DL (8.3-10.6); CREATININE FOR GFR 1.55 MG/DL (0.70-1.30); GLOMERULAR FILTRATION RATE 45.6 (>35); POTASSIUM SERUM 5.6 MMOL/L (3.5-5.1)
[2022-12-09 21:15] LABS: PROCALCITONIN 0.19 ng/ml
[2022-12-09] MEDS: PRIMIDONE 250 MG TAB PO SCH (22:03)
[2022-12-09 22:24] LABS: C REACTIVE PROTEIN QUANTITATIV 2.4 MG/DL (<1.0)
[2022-12-10 04:35] VITALS: BP 121/60; TEMP 97.9; O2SAT 98
[2022-12-10] MEDS: LEVOTHYROXINE 88MCG TABLET (0.088 MG) PO SCH (06:01)
[2022-12-10 06:16] LABS: HEMATOCRIT 29.8 % (42.0-52.0); HEMOGLOBIN 9.6 g/dl (13.5-17.5); MEAN CORPUSCULAR HEMOGLOBIN 31.5 pg (27.0-33.0); MEAN CORPUSCULAR HGB CONC 32.2 g/dl (32.0-36.5); MEAN CORPUSCULAR VOLUME 97.7 fl (80.0-96.0); PLATELET COUNT, AUTOMATED 258 10^3/uL (150-450); RED BLOOD COUNT 3.05 10^6/uL (4.30-6.10); WHITE BLOOD COUNT 4.5 10^3/uL (4.0-10.0)
[2022-12-10 06:52] LABS: CALCIUM LEVEL 7.7 MG/DL (8.3-10.6); CREATININE FOR GFR 1.51 MG/DL (0.70-1.30); POTASSIUM SERUM 5.1 MMOL/L (3.5-5.1)
[2022-12-10] MEDS: amLODIPine 5 MG TAB PO SCH ×2 (10:40→20:21)
[2022-12-10] MEDS: FIDAXOMICIN 200 MG TAB (DIFICID) PO SCH ×2 (10:40→20:27)
[2022-12-10] MEDS: ENOXAPARIN 30MG/0.3ML SYRINGE (J1650 PER 10MG) SC SCH (10:41)
[2022-12-10] MEDS: PRIMIDONE 250 MG TAB PO SCH (20:27)
[2022-12-11 06:00] VITALS: BP 118/60; TEMP 97.7; O2SAT 98
[2022-12-11] MEDS: LEVOTHYROXINE 88MCG TABLET (0.088 MG) PO SCH (06:22)
[2022-12-11] MEDS: LevoFLOXacin 750 MG TABLET PO SCH (06:22)
[2022-12-11] MEDS: FIDAXOMICIN 200 MG TAB (DIFICID) PO SCH ×2 (08:30→21:11)
[2022-12-11] MEDS: amLODIPine 5 MG TAB PO SCH ×2 (08:33→21:12)
[2022-12-11] MEDS: ENOXAPARIN 30MG/0.3ML SYRINGE (J1650 PER 10MG) SC SCH (08:33)
[2022-12-11] MEDS: PRIMIDONE 250 MG TAB PO SCH (21:11)
[2022-12-12 06:00] VITALS: BP 112/59; TEMP 98; O2SAT 95
[2022-12-12] MEDS: LEVOTHYROXINE 88MCG TABLET (0.088 MG) PO SCH (06:05)
[2022-12-12 06:53] LABS: ALBUMIN 2.6 G/DL (3.2-5.2); BILIRUBIN,TOTAL 0.2 MG/DL (0.3-1.2); CREATININE FOR GFR 1.54 MG/DL (0.70-1.30); GLOMERULAR FILTRATION RATE 45.9 (>35); TOTAL PROTEIN 5.5 G/DL (5.7-8.2)
[2022-12-12] MEDS: amLODIPine 5 MG TAB PO SCH ×2 (09:00→20:16)
[2022-12-12] MEDS: FIDAXOMICIN 200 MG TAB (DIFICID) PO SCH ×2 (09:18→20:15)
[2022-12-12] MEDS: ENOXAPARIN 30MG/0.3ML SYRINGE (J1650 PER 10MG) SC SCH (09:19)
[2022-12-12] MEDS: PRIMIDONE 250 MG TAB PO SCH (20:15)
[2022-12-13] MEDS: LEVOTHYROXINE 88MCG TABLET (0.088 MG) PO SCH (05:51)
[2022-12-13] MEDS: LevoFLOXacin 750 MG TABLET PO SCH (05:51)
[2022-12-13 06:00] VITALS: BP 116/64; TEMP 97.7; O2SAT 96
[2022-12-13 06:10] LABS: HEMATOCRIT 30.1 % (42.0-52.0); HEMOGLOBIN 9.5 g/dl (13.5-17.5); MEAN CORPUSCULAR HEMOGLOBIN 31.1 pg (27.0-33.0); MEAN CORPUSCULAR HGB CONC 31.6 g/dl (32.0-36.5); MEAN CORPUSCULAR VOLUME 98.7 fl (80.0-96.0); PLATELET COUNT, AUTOMATED 266 10^3/uL (150-450); RED BLOOD COUNT 3.05 10^6/uL (4.30-6.10); WHITE BLOOD COUNT 4.7 10^3/uL (4.0-10.0)
[2022-12-13 06:34] LABS: CALCIUM LEVEL 7.9 MG/DL (8.3-10.6); CREATININE FOR GFR 1.67 MG/DL (0.70-1.30); GLOMERULAR FILTRATION RATE 41.8 (>35); POTASSIUM SERUM 5.4 MMOL/L (3.5-5.1)
[2022-12-13] MEDS: amLODIPine 5 MG TAB PO SCH ×2 (09:00→21:00)
[2022-12-13] MEDS: FIDAXOMICIN 200 MG TAB (DIFICID) PO SCH ×2 (09:26→21:43)
[2022-12-13] MEDS: ENOXAPARIN 30MG/0.3ML SYRINGE (J1650 PER 10MG) SC SCH (09:26)
[2022-12-13] MEDS: PRIMIDONE 250 MG TAB PO SCH (21:43)
[2022-12-14 05:50] VITALS: BP 105/59; TEMP 97.9; O2SAT 98
[2022-12-14] MEDS: LEVOTHYROXINE 88MCG TABLET (0.088 MG) PO SCH (06:06)
[2022-12-14] MEDS: amLODIPine 5 MG TAB PO SCH ×2 (09:00→20:17)
[2022-12-14] MEDS: ENOXAPARIN 30MG/0.3ML SYRINGE (J1650 PER 10MG) SC SCH (09:34)
[2022-12-14] MEDS: FIDAXOMICIN 200 MG TAB (DIFICID) PO SCH ×2 (09:34→20:17)
[2022-12-14] MEDS ORDERED: MIRALAX *UNIT DOSE* 17GM PACKET PO PRN (14:55)
[2022-12-14] MEDS: PRIMIDONE 250 MG TAB PO SCH (20:17)
[2022-12-15] MEDS: LEVOTHYROXINE 88MCG TABLET (0.088 MG) PO SCH (05:08)
[2022-12-15 06:00] VITALS: BP 115/48; TEMP 97.9; O2SAT 98
[2022-12-15] MEDS: FIDAXOMICIN 200 MG TAB (DIFICID) PO SCH ×2 (08:45→20:16)
[2022-12-15] MEDS: ENOXAPARIN 30MG/0.3ML SYRINGE (J1650 PER 10MG) SC SCH (08:46)
[2022-12-15] MEDS: amLODIPine 5 MG TAB PO SCH ×2 (08:47→20:16)
[2022-12-15] MEDS: PRIMIDONE 250 MG TAB PO SCH (20:16)
[2022-12-16] MEDS: LEVOTHYROXINE 88MCG TABLET (0.088 MG) PO SCH (05:29)
[2022-12-16 05:40] VITALS: BP 111/51; TEMP 97.9; O2SAT 99
[2022-12-16 08:38] VITALS: BP 115/50
[2022-12-16] MEDS: FIDAXOMICIN 200 MG TAB (DIFICID) PO SCH ×2 (08:53→20:11)
[2022-12-16] MEDS: amLODIPine 5 MG TAB PO SCH ×2 (08:53→20:11)
[2022-12-16] MEDS: ENOXAPARIN 30MG/0.3ML SYRINGE (J1650 PER 10MG) SC SCH (08:54)
[2022-12-16] MEDS: DICLOFENAC EPOLAMINE 1.3% PATCH TOP SCH ×2 (12:33→20:14)
[2022-12-16] MEDS: PRIMIDONE 250 MG TAB PO SCH (20:11)
[2022-12-17] MEDS: LEVOTHYROXINE 88MCG TABLET (0.088 MG) PO SCH (05:24)
[2022-12-17 05:48] LABS: HEMOGLOBIN 10.3 g/dl (13.5-17.5); MEAN CORPUSCULAR HEMOGLOBIN 31.7 pg (27.0-33.0); MEAN CORPUSCULAR HGB CONC 32.2 g/dl (32.0-36.5); MEAN CORPUSCULAR VOLUME 98.5 fl (80.0-96.0); PLATELET COUNT, AUTOMATED 208 10^3/uL (150-450); RED BLOOD COUNT 3.25 10^6/uL (4.30-6.10); WHITE BLOOD COUNT 5.7 10^3/uL (4.0-10.0)
[2022-12-17 05:50] VITALS: BP 119/60; TEMP 97.5; O2SAT 97
[2022-12-17 06:14] LABS: CREATININE FOR GFR 1.51 MG/DL (0.70-1.30); POTASSIUM SERUM 4.8 MMOL/L (3.5-5.1)
[2022-12-17] MEDS: FIDAXOMICIN 200 MG TAB (DIFICID) PO SCH ×2 (09:53→20:31)
[2022-12-17] MEDS: ENOXAPARIN 30MG/0.3ML SYRINGE (J1650 PER 10MG) SC SCH (09:53)
[2022-12-17] MEDS: amLODIPine 5 MG TAB PO SCH ×2 (09:56→20:27)
[2022-12-17] MEDS: DICLOFENAC EPOLAMINE 1.3% PATCH TOP SCH ×2 (09:57→20:32)
[2022-12-17] MEDS: PRIMIDONE 250 MG TAB PO SCH (20:31)
[2022-12-17] MEDS: ACETAMINOPHEN TAB 650MG DOSE (2X325MG) PO PRN (20:32)
[2022-12-18] MEDS: LEVOTHYROXINE 88MCG TABLET (0.088 MG) PO SCH (05:02)
[2022-12-18 05:36] VITALS: BP 121/55; TEMP 97.5; O2SAT 95
[2022-12-18] MEDS: ENOXAPARIN 30MG/0.3ML SYRINGE (J1650 PER 10MG) SC SCH (08:41)
[2022-12-18] MEDS: FIDAXOMICIN 200 MG TAB (DIFICID) PO SCH ×2 (08:41→20:51)
[2022-12-18] MEDS: amLODIPine 5 MG TAB PO SCH ×2 (08:41→20:49)
[2022-12-18] MEDS: DICLOFENAC EPOLAMINE 1.3% PATCH TOP SCH ×2 (08:41→20:52)
[2022-12-18] MEDS: PRIMIDONE 250 MG TAB PO SCH (20:51)
[2022-12-18] MEDS: ACETAMINOPHEN TAB 650MG DOSE (2X325MG) PO PRN (20:52)
[2022-12-19] MEDS: LEVOTHYROXINE 88MCG TABLET (0.088 MG) PO SCH (05:04)
[2022-12-19 05:18] VITALS: BP 106/61; TEMP 98.1; O2SAT 95
[2022-12-19] MEDS ORDERED: SYNT88TA2 PO (08:43)
[2022-12-19] MEDS ORDERED: DICL1PAT6 TOP (08:43)
[2022-12-19] MEDS ORDERED: ACET1TAB55 PO (08:43)
[2022-12-19] MEDS ORDERED: AMLO1TAB24 PO (08:43)
[2022-12-19] MEDS: ENOXAPARIN 30MG/0.3ML SYRINGE (J1650 PER 10MG) SC SCH (09:00)
[2022-12-19] MEDS: amLODIPine 5 MG TAB PO SCH ×2 (09:00→21:00)
[2022-12-19] MEDS: DICLOFENAC EPOLAMINE 1.3% PATCH TOP SCH ×2 (09:17→21:04)
[2022-12-19] MEDS ORDERED: IBUP200C25 PO (09:38)
[2022-12-19 20:15] VITALS: BP 115/55
[2022-12-19] MEDS: PRIMIDONE 250 MG TAB PO SCH (21:04)
[2022-12-20] MEDS: LEVOTHYROXINE 88MCG TABLET (0.088 MG) PO SCH (05:06)
[2022-12-20 05:38] VITALS: BP 119/54; TEMP 97.7; O2SAT 95
[2022-12-20 06:44] LABS: HEMATOCRIT 27.3 % (42.0-52.0); HEMOGLOBIN 8.7 g/dl (13.5-17.5); MEAN CORPUSCULAR HEMOGLOBIN 31.4 pg (27.0-33.0); MEAN CORPUSCULAR HGB CONC 31.9 g/dl (32.0-36.5); MEAN CORPUSCULAR VOLUME 98.6 fl (80.0-96.0); PLATELET COUNT, AUTOMATED 169 10^3/uL (150-450); RED BLOOD COUNT 2.77 10^6/uL (4.30-6.10); WHITE BLOOD COUNT 5.8 10^3/uL (4.0-10.0)
[2022-12-20 07:07] LABS: CALCIUM LEVEL 7.9 MG/DL (8.3-10.6); CREATININE FOR GFR 1.75 MG/DL (0.70-1.30); GLOMERULAR FILTRATION RATE 39.6 (>35)
[2022-12-20] MEDS: ENOXAPARIN 30MG/0.3ML SYRINGE (J1650 PER 10MG) SC SCH (08:36)
[2022-12-20 08:37] VITALS: BP 135/57
[2022-12-20] MEDS: DICLOFENAC EPOLAMINE 1.3% PATCH TOP SCH (08:37)
[2022-12-20] MEDS: amLODIPine 5 MG TAB PO SCH (08:37)
[2022-12-20] MEDS ORDERED: COLC0.6T47 PO (10:51)
== END 2022-12-20 12:10 | DRG 309 ==
LOC: EDBD 10:20 → M ED 10:20 → M ED INP 10:21 → EDBEDREQ 15:46 → ENRESERV 11-27 15:44 → M PCU 11-27 17:17 → OBSVTOIN 11-28 12:52 → M MSPAV 12-04 18:51
PROVIDERS: ADMIT General Practice; ATTEND General Practice
DX: R00.1 Bradycardia, unspecified (principal); N39.0 Urinary tract infection, site not specified; R78.81 Bacteremia; J98.11 Atelectasis; A04.72 Enterocolitis due to Clostridium difficile, not specified as recurrent; E03.9 Hypothyroidism, unspecified; T50.905A Adverse effect of unspecified drugs, medicaments and biological substances, initial encounter; I12.9 Hypertensive chronic kidney disease with stage 1 through stage 4 chronic kidney disease, or unspecified chronic kidney disease; M10.9 Gout, unspecified; M54.50 Low back pain, unspecified; F03.90 Unspecified dementia, unspecified severity, without behavioral disturbance, psychotic disturbance, mood disturbance, and anxiety; R29.6 Repeated falls; R25.1 Tremor, unspecified; M19.90 Unspecified osteoarthritis, unspecified site; Z91.128 Patient's intentional underdosing of medication regimen for other reason; Z79.899 Other long term (current) drug therapy; N18.9 Chronic kidney disease, unspecified

== ENCOUNTER → 2022-12-21 | Outpatient (REF) | payer MEDICARE ==
[~2022-12-21] MED LIST changes: +ACET1TAB55 PO; +AMLO1TAB24 PO; +CEFD300C41 PO; +COLC0.6T47 PO; +DICL1PAT6 TOP; +IBUP200C25 PO; +PROP60CA; +SYNT88TA2 PO
[2022-12-21 11:53] LABS: HEMATOCRIT 31.4 % (42.0-52.0); HEMOGLOBIN 10.2 g/dl (13.5-17.5); MEAN CORPUSCULAR HEMOGLOBIN 32.4 pg (27.0-33.0); MEAN CORPUSCULAR HGB CONC 32.5 g/dl (32.0-36.5); MEAN CORPUSCULAR VOLUME 99.7 fl (80.0-96.0); PLATELET COUNT, AUTOMATED 223 10^3/uL (150-450); RED BLOOD COUNT 3.15 10^6/uL (4.30-6.10); WHITE BLOOD COUNT 4.8 10^3/uL (4.0-10.0)
[2022-12-21 12:11] LABS: CALCIUM LEVEL 8.4 MG/DL (8.3-10.6); CREATININE FOR GFR 1.44 MG/DL (0.70-1.30); GLOMERULAR FILTRATION RATE 49.6 (>35); POTASSIUM SERUM 5.1 MMOL/L (3.5-5.1)
[2022-12-21 12:14] LABS: FREE T4 0.81 NG/DL (0.89-1.76); THYROID STIMULATING HORMONE 2.912 uIU/ML (0.55-4.78)
== END ==
LOC: SKLAB4 11:06
PROVIDERS: ATTEND Internal Medicine
DX: I10 Essential (primary) hypertension (principal); E07.9 Disorder of thyroid, unspecified; Z79.899 Other long term (current) drug therapy

== ENCOUNTER → 2022-12-27 | Outpatient (REF) | payer MEDICARE | LOC: SKLAB4 14:46 | PROVIDERS: ATTEND Internal Medicine | DX: M10.9 Gout, unspecified (principal) ==

== ENCOUNTER → 2023-07-02 | Outpatient (REF) | payer MEDICARE ==
[~2023-07-02] MED LIST changes: +CEFD1CAP9 PO; -CEFD300C41 PO
== END ==
LOC: SKLAB5 11:08
PROVIDERS: ATTEND Nurse Practitioner Family
DX: I10 Essential (primary) hypertension (principal); E03.9 Hypothyroidism, unspecified; Z53.8 Procedure and treatment not carried out for other reasons

== ENCOUNTER → 2023-07-11 | Outpatient (REF) | payer MEDICARE ==
[2023-07-11 08:18] LABS: HEMATOCRIT 38.5 % (42.0-52.0); HEMOGLOBIN 12.6 g/dl (13.5-17.5); MEAN CORPUSCULAR HEMOGLOBIN 31.8 pg (27.0-33.0); MEAN CORPUSCULAR HGB CONC 32.7 g/dl (32.0-36.5); MEAN CORPUSCULAR VOLUME 97.2 fl (80.0-96.0); PLATELET COUNT, AUTOMATED 165 10^3/uL (150-450); RED BLOOD COUNT 3.96 10^6/uL (4.30-6.10); WHITE BLOOD COUNT 5.2 10^3/uL (4.0-10.0)
[2023-07-11 08:47] LABS: CALCIUM LEVEL 8.1 MG/DL (8.3-10.6); CREATININE FOR GFR 1.53 MG/DL (0.70-1.30); GLOMERULAR FILTRATION RATE 46.3 (>35)
[2023-07-11 08:48] LABS: THYROID STIMULATING HORMONE 5.513 uIU/ML (0.55-4.78)
[2023-07-11 08:49] LABS: FREE T4 0.94 NG/DL (0.89-1.76)
== END ==
LOC: SKLAB5 10:09
PROVIDERS: ATTEND Nurse Practitioner Family
DX: I10 Essential (primary) hypertension (principal); E03.9 Hypothyroidism, unspecified

== ENCOUNTER 2023-07-23 10:19 | Inpatient (IN) | payer MEDICARE ==
[~2023-07-23] VITALS: Ht 175.3 cm; Wt 83.5 kg
[~2023-07-23 10:19] MED LIST changes: -ACET65SU PR; -ACETAMINOPHEN 1000MG 100ML IV BAG As Ordered ONE; -APAP325T4 PO; -ASPI81TAEC PO; -ETOMIDATE INJ 20MG/10ML VIAL As Ordered ONE; -FLEEENE12 PR; -HYDROmorphone HCL 2MG/ML 1ML VIAL As Ordered ONE; -LEVO88TA3 PO; -LIDOCAINE 2% 100MG/5ML SDV (FOR ANES.) As Ordered ONE; -MILKSUS3 PO; -ONDANSETRON 4MG 2ML VIAL As Ordered ONE; -OXYC-517 PO; -ROCURONIUM BROMIDE 50MG/5ML VIAL As Ordered ONE; -SUGAMMADEX SODIUM 500 MG/5 ML VIAL (BRIDION) As Ordered ONE; -ePHEDrine SULFATE 25 MG/5 ML(5MG/ML) SYRINGE As Ordered ONE; -fentaNYL 100 MCG/2 ML INJECTION As Ordered ONE; -propofoL 200 MG/20 ML VIAL As Ordered ONE
[2023-07-23] MEDS: MORPHINE 4 MG/ML 1ML VIAL IV PRN ×2 (11:30→14:29)
[2023-07-23 11:52] LABS: BASO # 0.1 10^3/uL (0.0-0.2); BASO % 0.9 % (0.0-1.0); EOS # 0.1 10^3/uL (0.0-0.5); EOS % 1.1 % (0.0-3.0); HEMATOCRIT 40.3 % (42.0-52.0); HEMOGLOBIN 13.5 g/dl (13.5-17.5); LYMPH # 1.3 10^3/uL (1.5-5.0); LYMPH % 24.1 % (24.0-44.0); MEAN CORPUSCULAR HEMOGLOBIN 32.9 pg (27.0-33.0); MEAN CORPUSCULAR HGB CONC 33.5 g/dl (32.0-36.5); MEAN CORPUSCULAR VOLUME 98.3 fl (80.0-96.0); MONO # 0.4 10^3/uL (0.0-0.8); MONO % 7.6 % (2.0-8.0); NEUTROPHILS # 3.6 10^3/uL (1.5-8.5); NEUTROPHILS % 65.8 % (36.0-66.0); PLATELET COUNT, AUTOMATED 162 10^3/uL (150-450); WHITE BLOOD COUNT 5.5 10^3/uL (4.0-10.0)
[2023-07-23] MEDS ORDERED: LEVO88TA3 PO (12:01)
[2023-07-23] MEDS ORDERED: SYNT88TA2 PO (12:01)
[2023-07-23] MEDS ORDERED: MILKSUS3 PO (12:07)
[2023-07-23] MEDS ORDERED: APAP325T4 PO (12:07)
[2023-07-23] MEDS ORDERED: FLEEENE12 PR (12:07)
[2023-07-23] MEDS ORDERED: BISA10SU27 PR (12:07)
[2023-07-23] MEDS ORDERED: ACET65SU PR (12:07)
[2023-07-23] MEDS ORDERED: HOME MED LIST COMPLETE! XX SCH (12:10)
[2023-07-23 12:17] LABS: INR 1.04; PARTIAL THROMBOPLASTIN TIME 26.1 SECONDS (24.8-34.2); PROTHROMBIN TIME 13.3 SECONDS (12.5-14.5)
[2023-07-23 12:23] LABS: CALCIUM LEVEL 8.6 MG/DL (8.3-10.6); CK-MB VALUE MASS 1.2 NG/ML (<3.6); CREATININE FOR GFR 1.72 MG/DL (0.70-1.30); GLOMERULAR FILTRATION RATE 40.4 (>35); POTASSIUM SERUM 5.2 MMOL/L (3.5-5.1)
[2023-07-23 12:25] LABS: FREE T4 0.9 NG/DL (0.89-1.76); THYROID STIMULATING HORMONE 6.247 uIU/ML (0.55-4.78)
[2023-07-23] MEDS ORDERED: MAALOX 30 ML SUSP *UDC PO PRN (14:10)
[2023-07-23] MEDS ORDERED: MOM 30ML SUSPENSION UDC PO PRN (14:10)
[2023-07-23] MEDS ORDERED: MORPHINE 2 MG/ML 1ML VIAL IV PRN ×2 (14:15→20:55)
[2023-07-23] MEDS ORDERED: NS 1,000 ML IV SCH (17:55)
[2023-07-23] MEDS: NS 1,000 ML IV ONE (17:55)
[2023-07-23] MEDS ORDERED: TRANEXAMIC ACID 100 MG/ML 10ML VIAL As Ordered ONE (19:12)
[2023-07-23] MEDS ORDERED: ACETAMINOPHEN TAB 650MG DOSE (2X325MG) PO PRN (19:30)
[2023-07-23] MEDS: ceFAZolin 2 GM/D5W 50 ML IV BAG As Ordered ONE (19:52)
[2023-07-23] MEDS ORDERED: fentaNYL 100 MCG/2 ML INJECTION IV PRN (20:55)
[2023-07-23] MEDS ORDERED: oxyCODONE 5MG TAB PO PRN (20:55)
[2023-07-23] MEDS ORDERED: ONDANSETRON 4MG 2ML VIAL IV PRN ×2 (20:55→21:15)
[2023-07-23] MEDS ORDERED: SENNA 8.6 MG TAB (SENOKOT) PO PRN (21:15)
[2023-07-23] MEDS: LR 1,000 ML IV SCH (21:52)
[2023-07-23 21:55] VITALS: BP 138/73; TEMP 98.4; O2SAT 98
[2023-07-23] MEDS: PRIMIDONE 250 MG TAB PO SCH (22:24)
[2023-07-23 22:25] VITALS: BP 136/70; TEMP 98.6; O2SAT 96
[2023-07-23 23:00] VITALS: BP 132/68; TEMP 97.9; O2SAT 99
[2023-07-23] MEDS: ACETAMINOPHEN TAB 650MG DOSE (2X325MG) PO SCH (23:14)
[2023-07-24] VITALS (8 sets, daily range): BP systolic 107–130; BP diastolic 56–67; TEMP 98–99; O2SAT 97–98
[2023-07-24] MEDS: ceFAZolin SOD 2 GM in IV 1 EA IV SCH (02:05)
[2023-07-24] MEDS: LEVOTHYROXINE 88MCG TABLET (0.088 MG) PO SCH (05:39)
[2023-07-24 06:33] LABS: HEMATOCRIT 34.3 % (42.0-52.0); MEAN CORPUSCULAR HEMOGLOBIN 32.9 pg (27.0-33.0); MEAN CORPUSCULAR HGB CONC 33.5 g/dl (32.0-36.5); PLATELET COUNT, AUTOMATED 149 10^3/uL (150-450); WHITE BLOOD COUNT 7.7 10^3/uL (4.0-10.0)
[2023-07-24 06:35] LABS: HEMOGLOBIN 11.5 g/dl (13.5-17.5)
[2023-07-24 06:54] LABS: BILIRUBIN,TOTAL 0.3 MG/DL (0.3-1.2); CALCIUM LEVEL 7.4 MG/DL (8.3-10.6); CREATININE FOR GFR 1.53 MG/DL (0.70-1.30); GLOMERULAR FILTRATION RATE 46.3 (>35); PHOSPHORUS LEVEL 4.1 MG/DL (2.4-5.1); POTASSIUM SERUM 5.1 MMOL/L (3.5-5.1); TOTAL PROTEIN 5.6 G/DL (5.7-8.2)
[2023-07-24] MEDS: ASCORBIC ACID 500 MG TAB PO SCH (08:06)
[2023-07-24] MEDS: DOCUSATE SODIUM 100MG CAPSULE PO SCH (08:06)
[2023-07-24] MEDS: FERROUS SULFATE 325MG TAB PO SCH (08:06)
[2023-07-24] MEDS: ASPIRIN 81MG ENTERIC TABLET PO SCH (08:06)
[2023-07-24] MEDS: oxyCODONE 5MG TAB PO PRN ×2 (08:07)
[2023-07-24] MEDS ORDERED: OXYC-517 PO (10:18)
[2023-07-24] MEDS ORDERED: ASPI81TAEC PO (10:18)
== END 2023-07-24 14:35 | DRG 481 ==
LOC: M ED 10:19 → M RR INP 21:01 → M MSPAV 21:52
PROVIDERS: ADMIT Student in an Organized Health Care Education/Training Program; ATTEND Student in an Organized Health Care Education/Training Program
PROC: 0QS606Z Reposition Right Upper Femur with Intramedullary Internal Fixation Device, Open Approach (ICD-10-PCS; principal; 2023-07-23 18:00)
DX: S72.141A Displaced intertrochanteric fracture of right femur, initial encounter for closed fracture (principal); N17.9 Acute kidney failure, unspecified; E03.9 Hypothyroidism, unspecified; F03.90 Unspecified dementia, unspecified severity, without behavioral disturbance, psychotic disturbance, mood disturbance, and anxiety; I12.9 Hypertensive chronic kidney disease with stage 1 through stage 4 chronic kidney disease, or unspecified chronic kidney disease; N18.9 Chronic kidney disease, unspecified; E78.5 Hyperlipidemia, unspecified; E87.5 Hyperkalemia; M17.11 Unilateral primary osteoarthritis, right knee; G25.0 Essential tremor; Z79.899 Other long term (current) drug therapy; Z79.82 Long term (current) use of aspirin; W06.XXXA Fall from bed, initial encounter; Y92.128 Other place in nursing home as the place of occurrence of the external cause

== ENCOUNTER → 2023-07-23 | Outpatient (REF) | payer MEDICARE ==
[~2023-07-23] MED LIST changes: +ACET65SU PR; +APAP325T4 PO; +ASPI81TAEC PO; +FLEEENE12 PR; +LEVO88TA3 PO; +MILKSUS3 PO; +OXYC-517 PO
== END ==
LOC: SKLAB5 09:37
PROVIDERS: ATTEND Nurse Practitioner Family
DX: Z53.8 Procedure and treatment not carried out for other reasons (principal)

== ENCOUNTER → 2023-07-23 | Outpatient (CLI) | payer MEDICARE ==
[~2023-07-23] MED LIST changes: +ACETAMINOPHEN 1000MG 100ML IV BAG As Ordered ONE; +ETOMIDATE INJ 20MG/10ML VIAL As Ordered ONE; +HYDROmorphone HCL 2MG/ML 1ML VIAL As Ordered ONE; +LIDOCAINE 2% 100MG/5ML SDV (FOR ANES.) As Ordered ONE; +ONDANSETRON 4MG 2ML VIAL As Ordered ONE; +ROCURONIUM BROMIDE 50MG/5ML VIAL As Ordered ONE; +SUGAMMADEX SODIUM 500 MG/5 ML VIAL (BRIDION) As Ordered ONE; +ePHEDrine SULFATE 25 MG/5 ML(5MG/ML) SYRINGE As Ordered ONE; +fentaNYL 100 MCG/2 ML INJECTION As Ordered ONE; +propofoL 200 MG/20 ML VIAL As Ordered ONE
== END ==
LOC: M RAD 09:51
PROVIDERS: ATTEND Internal Medicine
DX: S72.141A Displaced intertrochanteric fracture of right femur, initial encounter for closed fracture (principal); X58.XXXA Exposure to other specified factors, initial encounter; Y92.9 Unspecified place or not applicable; Y93.9 Activity, unspecified; Y99.9 Unspecified external cause status

== ENCOUNTER → 2023-07-26 | Outpatient (REF) | payer MEDICARE ==
[~2023-07-26] MED LIST changes: +ACET65SU PR; +APAP325T4 PO; +ASPI81TAEC PO; +FLEEENE12 PR; +LEVO88TA3 PO; +MILKSUS3 PO; +OXYC-517 PO
[2023-07-26 08:30] LABS: HEMATOCRIT 27.7 % (42.0-52.0); MEAN CORPUSCULAR HEMOGLOBIN 32.4 pg (27.0-33.0); MEAN CORPUSCULAR HGB CONC 32.5 g/dl (32.0-36.5); MEAN CORPUSCULAR VOLUME 99.6 fl (80.0-96.0); PLATELET COUNT, AUTOMATED 126 10^3/uL (150-450); RED BLOOD COUNT 2.78 10^6/uL (4.30-6.10); WHITE BLOOD COUNT 5.7 10^3/uL (4.0-10.0)
[2023-07-26 08:59] LABS: CALCIUM LEVEL 7.6 MG/DL (8.3-10.6); CREATININE FOR GFR 1.67 MG/DL (0.70-1.30); GLOMERULAR FILTRATION RATE 41.8 (>35); POTASSIUM SERUM 4.9 MMOL/L (3.5-5.1)
== END ==
LOC: SKLAB5 07:00
PROVIDERS: ATTEND Nurse Practitioner Family
DX: I10 Essential (primary) hypertension (principal)

== ENCOUNTER → 2023-08-02 | Outpatient (REF) | payer MEDICARE ==
[2023-08-02 12:49] LABS: HEMATOCRIT 29.3 % (42.0-52.0); HEMOGLOBIN 9.4 g/dl (13.5-17.5); MEAN CORPUSCULAR HEMOGLOBIN 32.2 pg (27.0-33.0); MEAN CORPUSCULAR HGB CONC 32.1 g/dl (32.0-36.5); MEAN CORPUSCULAR VOLUME 100.3 fl (80.0-96.0); PLATELET COUNT, AUTOMATED 288 10^3/uL (150-450); RED BLOOD COUNT 2.92 10^6/uL (4.30-6.10); WHITE BLOOD COUNT 6.7 10^3/uL (4.0-10.0)
[2023-08-02 12:59] LABS: CALCIUM LEVEL 8.2 MG/DL (8.3-10.6); CREATININE FOR GFR 1.53 MG/DL (0.70-1.30); GLOMERULAR FILTRATION RATE 46.3 (>35); POTASSIUM SERUM 4.8 MMOL/L (3.5-5.1)
== END ==
LOC: SKLAB5 07:00
PROVIDERS: ATTEND Nurse Practitioner Family
DX: I10 Essential (primary) hypertension (principal)

== ENCOUNTER → 2023-08-07 | Outpatient (CLI) | payer MEDICARE | LOC: M SOG 09:50 | PROVIDERS: ATTEND Orthopaedic Surgery | DX: S72.141D Displaced intertrochanteric fracture of right femur, subsequent encounter for closed fracture with routine healing (principal) ==

== ENCOUNTER → 2023-08-12 | Outpatient (REF) | payer MEDICARE | LOC: SKLAB5 10:27 | PROVIDERS: ATTEND Internal Medicine | DX: K59.00 Constipation, unspecified (principal) ==

== ENCOUNTER → 2023-08-20 | Outpatient (REF) | payer MEDICARE | LOC: SKLAB5 08:47 | PROVIDERS: ATTEND Internal Medicine | DX: M25.569 Pain in unspecified knee (principal); Z53.8 Procedure and treatment not carried out for other reasons ==

== ENCOUNTER → 2023-08-20 | Outpatient (CLI) | payer MEDICARE | LOC: M RAD 14:37 | PROVIDERS: ATTEND Internal Medicine | DX: M25.561 Pain in right knee (principal); M17.0 Bilateral primary osteoarthritis of knee; S72.141D Displaced intertrochanteric fracture of right femur, subsequent encounter for closed fracture with routine healing; M25.461 Effusion, right knee ==

== ENCOUNTER → 2023-08-20 | Outpatient (CLI) | payer MEDICARE | LOC: M RAD 10:03 | PROVIDERS: ATTEND Nurse Practitioner Family | DX: M17.11 Unilateral primary osteoarthritis, right knee (principal); M25.461 Effusion, right knee ==

== ENCOUNTER → 2023-08-20 | Outpatient (REF) | payer MEDICARE | LOC: SKLAB5 14:13 | PROVIDERS: ATTEND Internal Medicine | DX: M25.59 Pain in other specified joint (principal); Z53.8 Procedure and treatment not carried out for other reasons ==

== ENCOUNTER → 2023-08-22 | Outpatient (REF) | payer MEDICARE | LOC: SKLAB5 15:27 | PROVIDERS: ATTEND Internal Medicine | DX: R35.0 Frequency of micturition (principal) ==

== ENCOUNTER → 2023-09-06 | Outpatient (CLI) | payer MEDICARE | LOC: M SOG 08:01 | PROVIDERS: ATTEND Orthopaedic Surgery | DX: Z53.9 Procedure and treatment not carried out, unspecified reason (principal) ==

== ENCOUNTER → 2023-10-09 | Outpatient (CLI) | payer MEDICARE | LOC: M SOG 07:53 | PROVIDERS: ATTEND Orthopaedic Surgery | DX: S72.141D Displaced intertrochanteric fracture of right femur, subsequent encounter for closed fracture with routine healing (principal) ==

== ENCOUNTER → 2023-10-21 | Outpatient (REF) ==
[2023-10-21 15:19] LABS: BASO % 0.5 % (0.0-1.0); EOS # 0.1 10^3/uL (0.0-0.5); EOS % 2.2 % (0.0-3.0); HEMATOCRIT 36.4 % (42.0-52.0); HEMOGLOBIN 11.8 g/dl (13.5-17.5); LYMPH # 1.5 10^3/uL (1.5-5.0); LYMPH % 27.5 % (24.0-44.0); MEAN CORPUSCULAR HEMOGLOBIN 32.1 pg (27.0-33.0); MEAN CORPUSCULAR HGB CONC 32.4 g/dl (32.0-36.5); MEAN CORPUSCULAR VOLUME 98.9 fl (80.0-96.0); MONO # 0.4 10^3/uL (0.0-0.8); MONO % 6.5 % (2.0-8.0); NEUTROPHILS # 3.5 10^3/uL (1.5-8.5); NEUTROPHILS % 62.9 % (36.0-66.0); PLATELET COUNT, AUTOMATED 184 10^3/uL (150-450); RED BLOOD COUNT 3.68 10^6/uL (4.30-6.10); WHITE BLOOD COUNT 5.5 10^3/uL (4.0-10.0)
[2023-10-21 15:42] LABS: ALBUMIN 3.4 G/DL (3.2-5.2); BILIRUBIN,TOTAL 0.3 MG/DL (0.3-1.2); CALCIUM LEVEL 8.2 MG/DL (8.3-10.6); CREATININE FOR GFR 1.62 MG/DL (0.70-1.30); GLOMERULAR FILTRATION RATE 43.2 (>35); POTASSIUM SERUM 5.1 MMOL/L (3.5-5.1); TOTAL PROTEIN 6.4 G/DL (5.7-8.2)
[2023-10-21 15:45] LABS: THYROID STIMULATING HORMONE 4.826 uIU/ML (0.55-4.78)
== END ==
LOC: SKLAB5 14:28
PROVIDERS: ATTEND Internal Medicine
DX: R41.82 Altered mental status, unspecified (principal)

== ENCOUNTER → 2023-11-19 | Outpatient (REF) ==
[2023-11-19 15:27] LABS: HEMATOCRIT 35.1 % (42.0-52.0); HEMOGLOBIN 11.7 g/dl (13.5-17.5); MEAN CORPUSCULAR HEMOGLOBIN 32.4 pg (27.0-33.0); MEAN CORPUSCULAR HGB CONC 33.3 g/dl (32.0-36.5); MEAN CORPUSCULAR VOLUME 97.2 fl (80.0-96.0); PLATELET COUNT, AUTOMATED 163 10^3/uL (150-450); RED BLOOD COUNT 3.61 10^6/uL (4.30-6.10); WHITE BLOOD COUNT 3.8 10^3/uL (4.0-10.0)
[2023-11-19 15:57] LABS: CREATININE FOR GFR 1.61 MG/DL (0.70-1.30); GLOMERULAR FILTRATION RATE 43.5 (>35); POTASSIUM SERUM 5.1 MMOL/L (3.5-5.1)
== END ==
LOC: SKLAB5 14:18
PROVIDERS: ATTEND Internal Medicine
DX: U07.1 COVID-19 (principal)

== ENCOUNTER → 2023-12-31 | Outpatient (REF) ==
[2023-12-31 14:59] LABS: THYROID STIMULATING HORMONE 4.028 uIU/ML (0.55-4.78)
== END ==
LOC: SKLAB5 07:00
PROVIDERS: ATTEND Internal Medicine
DX: E03.9 Hypothyroidism, unspecified (principal)

== ENCOUNTER → 2024-01-09 | Outpatient (CLI) | LOC: M SOG 07:20 | PROVIDERS: ATTEND Orthopaedic Surgery | DX: S72.141D Displaced intertrochanteric fracture of right femur, subsequent encounter for closed fracture with routine healing (principal); Z53.9 Procedure and treatment not carried out, unspecified reason ==

== ENCOUNTER → 2024-01-20 | Outpatient (CLI) | LOC: M SOG 07:26 | PROVIDERS: ATTEND Orthopaedic Surgery | DX: S72.141D Displaced intertrochanteric fracture of right femur, subsequent encounter for closed fracture with routine healing (principal) ==

== ENCOUNTER → 2024-01-23 | Outpatient (CLI) | LOC: M SOG 07:29 | PROVIDERS: ATTEND Orthopaedic Surgery | DX: S72.141D Displaced intertrochanteric fracture of right femur, subsequent encounter for closed fracture with routine healing (principal) ==

== ENCOUNTER → 2024-06-23 | Outpatient (REF) | payer MEDICARE | LOC: SKLAB5 09:41 | PROVIDERS: ATTEND Internal Medicine | DX: R25.1 Tremor, unspecified (principal); E03.9 Hypothyroidism, unspecified ==

== ENCOUNTER → 2024-06-23 | Outpatient (REF) | payer MEDICARE ==
[2024-06-23 09:12] LABS: HEMATOCRIT 38.7 % (42.0-52.0); HEMOGLOBIN 12.4 g/dl (13.5-17.5); PLATELET COUNT, AUTOMATED 224 10^3/uL (150-450); RED BLOOD COUNT 3.87 10^6/uL (4.30-6.10); WHITE BLOOD COUNT 6.8 10^3/uL (4.0-10.0)
[2024-06-23 09:48] LABS: ALBUMIN 3.4 G/DL (3.2-5.2); BILIRUBIN,TOTAL 0.3 MG/DL (0.3-1.2); CALCIUM LEVEL 8.3 MG/DL (8.3-10.6); CREATININE FOR GFR 1.85 MG/DL (0.70-1.30); GLOMERULAR FILTRATION RATE 37.1 (>35); MAGNESIUM LEVEL 2.1 MG/DL (1.8-2.4); POTASSIUM SERUM 4.8 MMOL/L (3.5-5.1); TOTAL PROTEIN 6.7 G/DL (5.7-8.2)
[2024-06-23 09:49] LABS: THYROXINE (T4) 5.3 UG/DL (4.5-10.9)
[2024-06-23 09:50] LABS: THYROID STIMULATING HORMONE 6.017 uIU/ML (0.55-4.78)
== END ==
LOC: SKLAB5 07:46
PROVIDERS: ATTEND Internal Medicine
DX: E03.9 Hypothyroidism, unspecified (principal); R25.1 Tremor, unspecified

== ENCOUNTER → 2024-08-13 | Outpatient (REF) | payer MEDICARE ==
[~2024-08-13] MED LIST changes: +AMLO-751 PO; -AMLO10TA PO
[2024-08-13 07:36] LABS: HEMATOCRIT 37.4 % (42.0-52.0); HEMOGLOBIN 12.5 g/dl (13.5-17.5); MEAN CORPUSCULAR HEMOGLOBIN 33.1 pg (27.0-33.0); MEAN CORPUSCULAR HGB CONC 33.4 g/dl (32.0-36.5); MEAN CORPUSCULAR VOLUME 98.9 fl (80.0-96.0); PLATELET COUNT, AUTOMATED 189 10^3/uL (150-450); RED BLOOD COUNT 3.78 10^6/uL (4.30-6.10); WHITE BLOOD COUNT 6.5 10^3/uL (4.0-10.0)
[2024-08-13 08:03] LABS: CALCIUM LEVEL 8.4 MG/DL (8.3-10.6); CREATININE FOR GFR 1.71 MG/DL (0.70-1.30); GLOMERULAR FILTRATION RATE 38.5 (>35); POTASSIUM SERUM 5.2 MMOL/L (3.5-5.1)
== END ==
LOC: SKLAB5 07:00
PROVIDERS: ATTEND Internal Medicine
DX: E03.9 Hypothyroidism, unspecified (principal); Z79.899 Other long term (current) drug therapy

== ENCOUNTER → 2025-01-05 | Outpatient (REF) | payer MEDICARE ==
[~2025-01-05] MED LIST changes: -COLC0.6T47 PO; +COLC0.6T53 PO
[2025-01-05 12:15] LABS: FREE T4 1.18 NG/DL (0.89-1.76)
== END ==
LOC: SKLAB5 07:00
PROVIDERS: ATTEND Internal Medicine
DX: E03.9 Hypothyroidism, unspecified (principal)

== ENCOUNTER → 2025-02-18 | Outpatient (REF) | payer MEDICARE ==
[2025-02-18 09:20] LABS: PLATELET COUNT, AUTOMATED 188 10^3/uL (150-450)
[2025-02-18 09:29] LABS: ESTIMATED AVERAGE GLUCOSE 94.0 MG/DL (60-110)
[2025-02-18 10:06] LABS: ALT/SGPT 24.0 U/L (7.0-40); AST/SGOT 21.0 U/L (<34); CALCIUM LEVEL 8.5 MG/DL (8.3-10.6); CARBON DIOXIDE LEVEL 23.0 MMOL/L (20-31); CHLORIDE LEVEL 110.0 MMOL/L (98-107); CHOLESTEROL LEVEL 266.0 MG/DL (<200); CHOLESTEROL RISK RATIO 5.46 (<5); CREATININE FOR GFR 1.6 MG/DL (0.70-1.30); GLOMERULAR FILTRATION RATE 41.4 (>35); LDL CHOLESTEROL 187.3 MG/DL (<100); NON-HDL-C 217.3 MG/DL; POTASSIUM SERUM 4.9 MMOL/L (3.5-5.1); SODIUM LEVEL 142.0 MMOL/L (136-145); TRIGLYCERIDES LEVEL 150.0 MG/DL (<150)
== END ==
LOC: SKLAB5 07:00
PROVIDERS: ATTEND Internal Medicine
DX: D64.9 Anemia, unspecified (principal); N18.9 Chronic kidney disease, unspecified; Z79.899 Other long term (current) drug therapy